=== PATIENT | male | born 1960 | race Caucasian/White ===

== ENCOUNTER 2017-11-26 13:07 | Inpatient (IN) | payer OTHER ==
[~2017-11-26] VITALS: Ht 182.9 cm; Wt 105.9 kg
[2017-11-26 13:23] VITALS: Ht 182.9 cm; Wt 105.9 kg
[2017-11-26 14:53] LABS: BASOPHIL % 0.7 % (0-2); PLATELET COUNT 201 x10^3mcL (130-400); RED CELL DISTRIBUTION WIDTH 13.9 % (11.5-14.5)
[2017-11-26 14:57] LABS: UA SPECIFIC GRAVITY 1.015 (1.005-1.035); microscopic required? YES; urine erythrocyte NEGATIVE (NEGATIVE)
[2017-11-26 15:02] LABS: CALCIUM 9.7 mg/dL (8.5-10.1); CARBON DIOXIDE 18.2 mmol/L (21-32); CHLORIDE SERUM 104 mmol/L (98-107); CREATININE SERUM 0.9 mg/dL (0.7-1.3); GFR1 > 60 mL/min; GLUCOSE SERUM 170 mg/dL (74-106); POTASSIUM SERUM 4.1 mmol/L (3.5-5.1); SODIUM SERUM 137 mmol/L (136-145)
[2017-11-26 15:14] LABS: ALBUMIN 3.6 g/dL (3.4-5.0); ALKALINE PHOSPHATASE 78 U/L (46-116); ALT/SGPT 62 U/L (16-63); AMYLASE 43 U/L (25-115); AST/SGOT 27 U/L (15-37); BILIRUBIN TOTAL 1.98 mg/dL (0.20-1.00); LIPASE 90 IU/L (73-393); TOTAL PROTEIN, SERUM 7.1 g/dL (6.4-8.2)
[2017-11-26 16:42] LABS: CHOLESTEROL/HDL RATIO 3.7; MAGNESIUM 2.3 mg/dL (1.8-2.4); PHOSPHOROUS 1.2 mg/dL (2.5-4.9)
[2017-11-26 16:45] LABS: T3 TOTAL 1.2 ng/mL
[2017-11-26 17:10] VITALS: BP 133/78
[2017-11-26 17:10] LABS: FREE T4 1.37 ng/dL (0.76-1.46); FREE THYROXINE INDEX 3.8 ug/dL (1.4-4.5); T4(THYROXINE) 11.1 ug/dL (4.7-13.3)
[2017-11-26 18:44] LABS: AMPHETAMINE QUAL UR NONE DETECTED (NEG <=1000)
[2017-11-26 19:20] VITALS: BP 141/93
[2017-11-27 05:58] VITALS: BP 140/90
[2017-11-27 06:43] LABS: BASOPHIL % 0 % (0-2); PLATELET COUNT 191 x10^3mcL (130-400)
[2017-11-27 06:49] LABS: CALCIUM 9.2 mg/dL (8.5-10.1); CARBON DIOXIDE 24.4 mmol/L (21-32); CHLORIDE SERUM 106 mmol/L (98-107); CREATININE SERUM 0.9 mg/dL (0.7-1.3); GFR1 > 60 mL/min; GLUCOSE SERUM 144 mg/dL (74-106); MAGNESIUM 2.3 mg/dL (1.8-2.4); PHOSPHOROUS 2.6 mg/dL (2.5-4.9); POTASSIUM SERUM 4.4 mmol/L (3.5-5.1); SODIUM SERUM 140 mmol/L (136-145)
[2017-11-27 09:50] VITALS: BP 140/84
[2017-11-27 12:16] VITALS: BP 135/88
[2017-11-27 17:17] VITALS: BP 144/93
[2017-11-27 19:45] VITALS: BP 115/74
[2017-11-27 20:58] VITALS: BP 127/84
[2017-11-28 05:38] VITALS: BP 139/90
[2017-11-28 06:14] LABS: BASOPHIL % 0.1 % (0-2); PLATELET COUNT 162 x10^3mcL (130-400); RED CELL DISTRIBUTION WIDTH 14.3 % (11.5-14.5)
[2017-11-28 07:04] LABS: CARBON DIOXIDE 25.8 mmol/L (21-32); CHLORIDE SERUM 109 mmol/L (98-107); CREATININE SERUM 0.9 mg/dL (0.7-1.3); GFR1 > 60 mL/min; GLUCOSE SERUM 103 mg/dL (74-106); POTASSIUM SERUM 4.9 mmol/L (3.5-5.1); SODIUM SERUM 140 mmol/L (136-145)
[2017-11-28 09:27] VITALS: BP 155/95
[2017-11-28 17:07] VITALS: BP 168/95
[2017-11-28 20:07] VITALS: BP 147/93
[2017-11-29 05:09] VITALS: BP 158/95
[2017-11-29 06:06] LABS: BASOPHIL % 0.4 % (0-2); PLATELET COUNT 171 x10^3mcL (130-400); RED CELL DISTRIBUTION WIDTH 14.1 % (11.5-14.5)
[2017-11-29 06:27] LABS: POTASSIUM SERUM 4.3 mmol/L (3.5-5.1); SODIUM SERUM 142 mmol/L (136-145)
[2017-11-29 07:01] LABS: BILIRUBIN DIRECT 0.39 mg/dL (0.0-0.2); BILIRUBIN TOTAL 1.3 mg/dL (0.20-1.00); CALCIUM 8.8 mg/dL (8.5-10.1); CARBON DIOXIDE 24.7 mmol/L (21-32); CHLORIDE SERUM 109 mmol/L (98-107); CREATININE SERUM 0.8 mg/dL (0.7-1.3); GFR1 > 60 mL/min; GLUCOSE SERUM 92 mg/dL (74-106)
[2017-11-29 08:54] VITALS: BP 148/94
[2017-11-29 17:44] VITALS: BP 160/103
[2017-11-29 18:25] VITALS: BP 167/96
[2017-11-29 20:12] VITALS: BP 132/82
[2017-11-30 05:05] VITALS: BP 158/99
[2017-11-30 05:48] VITALS: BP 158/98
[2017-11-30 06:14] LABS: BASOPHIL % 0.3 % (0-2); PLATELET COUNT 183 x10^3mcL (130-400); RED CELL DISTRIBUTION WIDTH 13.9 % (11.5-14.5)
[2017-11-30 06:40] LABS: CALCIUM 8.8 mg/dL (8.5-10.1); CARBON DIOXIDE 23.9 mmol/L (21-32); CHLORIDE SERUM 108 mmol/L (98-107); CREATININE SERUM 0.7 mg/dL (0.7-1.3); GFR1 > 60 mL/min; GLUCOSE SERUM 92 mg/dL (74-106); PHOSPHOROUS 2.6 mg/dL (2.5-4.9); POTASSIUM SERUM 4.1 mmol/L (3.5-5.1); SODIUM SERUM 139 mmol/L (136-145)
[2017-11-30 06:41] VITALS: BP 156/94
[2017-11-30 09:47] VITALS: BP 131/91
[2017-11-30] MEDS ORDERED: LEVAQUIN750 MG PO (11:20)
[2017-11-30] MEDS ORDERED: FLA500 PO (11:21)
[2017-11-30] MEDS ORDERED: GAS RELIEF80 MG PO (11:22)
[2017-11-30] MEDS ORDERED: LAC PO (11:22)
[2017-11-30] MEDS ORDERED: APAP/HYDROCODON1 T13 PO (13:54)
[2017-11-30 14:22] VITALS: BP 131/91
== END 2017-11-30 14:57 | disposition home or self-care (01) | DRG 391 ==
LOC: ED 13:07 → MU 15:38 → DU 15:38 → MU 11-27 18:46
PROVIDERS: Emergency Medicine; Family Medicine
DX: K52.9 Noninfective gastroenteritis and colitis, unspecified (principal); N17.0 Acute kidney failure with tubular necrosis; E86.0 Dehydration; K46.9 Unspecified abdominal hernia without obstruction or gangrene; E66.3 Overweight; K76.0 Fatty (change of) liver, not elsewhere classified; E78.5 Hyperlipidemia, unspecified; Z68.30 Body mass index [BMI] 30.0-30.9, adult
CPT/HCPCS: 83880; 84439; 87046; 87046-59; J1885; J1956; J2270; J2405; J3490; J7030; J8597; Q0092

== ENCOUNTER 2020-04-15 09:18 | Observation (INO) | payer OTHER ==
[~2020-04-15] VITALS: Ht 182.9 cm; Wt 101.6 kg
[~2020-04-15 09:18] MED LIST: APAP/HYDROCODON1 T13 PO; FLA500 PO; GAS RELIEF80 MG PO; LAC PO; LEVAQUIN750 MG PO
[2020-04-15 09:27] VITALS: Ht 182.9 cm; Wt 101.6 kg
--- NOTE | 2020-04-15 09:36 | NUR ---
PT WALKED TO ROOM IN STEADY GAIT.
--- NOTE | 2020-04-15 09:43 | NUR ---
URINE SAMPLE COLLECTED, URINE DIP DONE.
--- NOTE | 2020-04-15 10:38 | NUR ---
PT WAS TAKEN TO CT AFTER MEDICATION GIVEN.
[2020-04-15 11:07] LABS: BASOPHIL % 0.2 % (0-2); PLATELET COUNT 215 x10^3mcL (130-400); RED CELL DISTRIBUTION WIDTH 13.5 % (11.5-14.5)
[2020-04-15 11:08] LABS: UA SPECIFIC GRAVITY >=1.030 (1.005-1.035); microscopic required? YES; urine erythrocyte 3+ (NEGATIVE)
[2020-04-15 12:04] LABS: CARBON DIOXIDE 21.3 mmol/L (21-32); CHLORIDE SERUM 106 mmol/L (98-107); CREATININE SERUM 1.2 mg/dL (0.7-1.3); GFR1 > 60 mL/min; GLUCOSE SERUM 105 mg/dL (74-106); POTASSIUM SERUM 4.5 mmol/L (3.5-5.1); SODIUM SERUM 138 mmol/L (136-145)
[2020-04-15 12:14] LABS: ALBUMIN 3.8 g/dL (3.4-5.0); ALKALINE PHOSPHATASE 61 U/L (46-116); ALT/SGPT 78 U/L (16-63); AST/SGOT 37 U/L (15-37); LIPASE 115 IU/L (73-393); TOTAL PROTEIN, SERUM 6.6 g/dL (6.4-8.2)
--- NOTE | 2020-04-15 12:38 | NUR ---
PT STATED PAIN CAME BACK, DR. FREEDMAN AWARE. MORPHINE AND DAVID CABRAL ORDERED AND GIVEN IVP.
[2020-04-15] MEDS ORDERED: SIMVASTATIN5 M2 PO (12:40)
[2020-04-15] MEDS ORDERED: ELIQUIS5 MG PO (12:41)
[2020-04-15] MEDS ORDERED: FORTAMET500 M1 PO (12:42)
[2020-04-15] MEDS ORDERED: PEPCID AC20 M2 PO (12:43)
[2020-04-15] MEDS ORDERED: ZESTRIL20 MG PO (12:43)
--- NOTE | 2020-04-15 14:06 | NUR ---
[facility], ACCOMPANIED BY RN AND TRANSPORTER. PT A/A/O X 4, CALM, COOPERATIVE TO CARE; WEARS GLASSES (W/ PT). AMBULATORY, NO GAIT OR BALANCE IMPAIRMENT NOTED WHEN WALKING FROM GURNEY TO BED. ON TELE # 25, NSR, HR 75, DENIES CHEST PAIN OR DISCOMFORT AT THIS TIME. NO ACUTE RESPIRATORY DISTRESS NOTED. ABD SOFT, ROUND, NON-TENDER, NORMOACTIVE BOWEL SOUNDS X 4 QUADS, TYMPANY UPON PERCUSSION TO BUQ, LAST BM 04/14/2020. VOIDS FREELY, C/O BURNING ON URINATION AND CONSTANT SHARP PAIN TO L FLANK /10 THAT IS NOT EXACERBATED BY ANYTHING BUT RELIEVED MILDLY BY PAIN MEDICATION; UA SHOWS FEW BACTERIA AND RBC. IV SITE RH 20G, CDI. ORIENTED PT TO ROOM, BED CONTROLS, CALL LIGHT SYSTEM. SIDE RAILS UP X 2, BED IN LOW POSITION. UPON ADMISSION, NOTED THAT THERE IS AN ORDER FOR COVID-19/CHASTITY ORDERED AT 1330 WHICH WAS NOT ENDORSED FROM E/D; WILL ENDORSE TO MARGARITA BRODY.
--- NOTE | 2020-04-15 14:15 | NUR ---
RECIEVED REPORT FROM AUDREY AVILA: PATIENT IS A MALE ADMITTED TO THE ED FOR FLANK PAIN ON THE LEFT SIDE. HX OF DVT, GERD, KIDNEY STONES. NO HEMATURIA NOTED. IV 20G IN THE RIGHT HAND. GIVEN FENTANYL AND MORPHINE FOR PAIN IN E.R. CT SCAN WAS DONE OF THE ABDOMEN SHOWING A KIDNEY STONE. VS STABLE AT THIS TIME. ALERT AND ORIENTED X4. MRSA CULTURE DONE BY ANGE AVILA ASSISTING WITH ADMISSION.
[2020-04-15 14:54] VITALS: BP 139/83
[2020-04-15 17:20] VITALS: BP 120/79; BP 98/53
--- NOTE | 2020-04-15 19:30 | NUR ---
PT IS IN BED SITTING UP AT 90 DEGREES. A/O X4. WEARS GLASSES. ON TELEMONITOR 25. NSR. PULSES PALPABLE AND NO EDEMA NOTED. ON ROOM AIR. LUNG SOUNDS CTA. NORMOACTIVE BOWEL SOUNDS X4. LAST BM 04/14/20. FORMED AND BROWN. C/O LEFT FLANK PAIN. C/O LITTLE PAIN UPON URINATION. DENIES BLOOD NOTED IN URINE. AMBULATORY. NS RUNNING AT 100 MLS/HR. RH 20 G CDI. DENIES PAIN AT SITE. PATIENT CONCERNED ABOUT TAKING HIS HOME MEDS SCHEDULED AND CONCERNED ABOUT THE PAIN MEDS BEING EFFECTIVE FOR HIS PAIN THROUGHOUT THE NIGHT. WILL F/U. BED IN LOWEST AND LOCKED POSITION. CALL LIGHT WITHIN REACH. WILL CONT TO MONITOR.
[2020-04-15 20:17] VITALS: BP 127/76
--- NOTE | 2020-04-15 20:40 | NUR ---
PT C/O LEFT FLANK PAIN 02/15. GAVE MORPHINE PRESCRIBED FOR PAIN. BP WNL. WILL F/U WITH EFFECT OF MEDICATION.
--- NOTE | 2020-04-15 22:00 | NUR ---
PATIENT STATES PAIN DECREASED FOR ABOUT 2 HOURS AND THEN INCREASED AGAIN. GAVE NORCO PRESCRIBED PRN FOR PAIN. WILL F/U WITH EFFECT OF MEDICATION.
--- NOTE | 2020-04-15 22:27 | NUR ---
PT STATES HIS PAIN DECREASED FOR ABOUT TWO HOURS BUT HAS INCREASED AGAIN. WILL F/U WITH OTHER PAIN MEDS.
--- NOTE | 2020-04-16 01:10 | NUR ---
PATIENT STATES PAIN 8/10 LEFT FLANK PAIN. GAVE MORPHINE PRESCRIBED PRN FOR PAIN. WILL F/U WITH EFFECT OF MEDICATION.
--- NOTE | 2020-04-16 01:15 | NUR ---
PATIENT STATES HE HAS NOT BEEN ABLE TO SLEEP BECAUSE HE IS FREQUENTLY GETTING UP TO URINATE AT NIGHT. HE ALSO STATES THAT THE PAIN IS LIKE A "ROLLERCOASTER." THE PAIN LEVEL INCREASES AND DECREASES QUICKLY THROUGHOUT THE NIGHT.
--- NOTE | 2020-04-16 03:00 | NUR ---
PT IS RESTING IN BED WITH EYES CLOSED. BREATHING E/U. NO DISTRESS NOTED AT THIS TIME.
[2020-04-16 05:43] VITALS: BP 100/63
--- NOTE | 2020-04-16 06:15 | NUR ---
PAGED DR TINOCO REGARDING ORDERS FOR BLOOD SUGARS, SIMVASTATIN HOME MED, AND CHANGE IN PAIN MEDS. WILL AWAIT CALL.
[2020-04-16 06:37] LABS: BASOPHIL % 0.2 % (0-2); PLATELET COUNT 189 x10^3mcL (130-400); RED CELL DISTRIBUTION WIDTH 13.9 % (11.5-14.5)
--- NOTE | 2020-04-16 06:50 | NUR ---
AWAITING CALL FROM DR TINOCO REGARDING ORDERS.
[2020-04-16 06:58] LABS: CALCIUM 9.4 mg/dL (8.5-10.1); CHLORIDE SERUM 105 mmol/L (98-107); CREATININE SERUM 1.1 mg/dL (0.7-1.3); GFR1 > 60 mL/min; GLUCOSE SERUM 106 mg/dL (74-106); POTASSIUM SERUM 4.1 mmol/L (3.5-5.1); SODIUM SERUM 137 mmol/L (136-145)
--- NOTE | 2020-04-16 07:44 | NUR ---
INPUTED ORDERS STATED BY DR TINOCO. CONTINUED HOME MED SIMVASTATIN. ORDERED INSULIN SLIDING SCALE SET. DC'D MORPHINE AND ORDERED A HIGHER DOSE OF NORCO FOR SEVERE PAIN.
--- NOTE | 2020-04-16 07:45 | NUR ---
PATIENT IS STABLE AT THIS TIME. ENDORSED CARE TO AM NURSE.
[2020-04-16 08:24] VITALS: BP 112/76
[2020-04-16 11:53] VITALS: BP 107/70
[2020-04-16 15:35] VITALS: BP 103/63
--- NOTE | 2020-04-16 17:15 | NUR ---
UPDATE: TYLENOL GIVEN AGAIN FOR SORENESS ON BACK, PATIENT THINKS FROM PASSING KIDEY STONE LAST NIGHT. DOES NOT WANT NORCO AT THIS TIME CONTINUE TYLENOL. NORCO HE SAID WILL TAKE IT TONIGHT IF NEEDED. ACCUCHECKS ADDED LAST NIGHT FOR PREDIABETES TYPE 2. ALL ACCUCHECKS ARE WITHIN NORMAL LIMITS RANGING 108 & 90MG/DL TODAY.
--- NOTE | 2020-04-16 19:40 | NUR ---
Awake and verbally responsive. No respiratory distress noted on room air. Denies pain. Denies n/v. Will cont.to monitor. Call light within reach.
[2020-04-16 20:55] VITALS: BP 105/67
--- NOTE | 2020-04-17 | NUR ---
Resting at this time. In no apparent distress. Will cont.to monitor.
--- NOTE | 2020-04-17 04:35 | NUR ---
Afebrile. No significant change in condition noted. Denies pain. Denies dysuria or hematuria. Cont.on IV rocephin. In no apparent distress.
[2020-04-17 05:31] VITALS: BP 128/86
[2020-04-17 06:36] LABS: BASOPHIL % 0.4 % (0-2); PLATELET COUNT 195 x10^3mcL (130-400); RED CELL DISTRIBUTION WIDTH 13.7 % (11.5-14.5)
[2020-04-17 07:02] LABS: CALCIUM 9.7 mg/dL (8.5-10.1); CARBON DIOXIDE 28.3 mmol/L (21-32); CHLORIDE SERUM 107 mmol/L (98-107); GFR1 > 60 mL/min; GLUCOSE SERUM 97 mg/dL (74-106); POTASSIUM SERUM 4.5 mmol/L (3.5-5.1); SODIUM SERUM 140 mmol/L (136-145)
--- NOTE | 2020-04-17 07:14 | NUR ---
RECEIVED PT FROM DIRECTOR DATA PROCESSING NURSE. PT RESTING IN BED, AOX4, RESP E/U ON RA. DENIES ABD PAIN OR N/V AT THIS TIME. NO ACUTE DISTRESS NOTED. ON TELE 25 SHOWING SR, HR: 94. IV TO R HAND W/ NO SIGNS OF INFILTRATION, IVF INFUSING WELL. BED IN LOWEST POSITION AND CALL LIGHT WITHIN REACH. WILL CONTINUE TO MONITOR.
[2020-04-17 12:08] VITALS: BP 126/80
--- NOTE | 2020-04-17 13:08 | NUR ---
PT IN BED HAVING LUNCH, AOX4, RESP E/U ON RA. DENIES L FLANK PAIN OR N/V AT THIS TIME. NO ACUTE DISTRESS NOTED. BED IN LOWEST POSITION AND CALL LIGHT WITHIN REACH. WILL CONTINUE TO MONITOR.
--- NOTE | 2020-04-17 15:21 | NUR ---
PT DISCHARGED. REVIEWED D/C PACKET, NEW RX MEDS AND F/U INSTRUCTIONS W/ PT. PT VERBALIZED UNDERSTANDING OF INSTRUCTIONS. PT AOX4, RESP E/U ON RA, VS STABLE, DENIES PAIN OR N/V AT THIS TIME. IV TO RH REMOVED, CATH INTACT, GAUZE APPLIED TO SITE. TELE 25 COLLECTED AND RETURNED TO STUCCO APPLICATOR. PT AMBULATORY TO [facility]. ESCORTED BY BILLY REY W/ NO ACUTE INCIDENCE.
[2020-04-17] MEDS ORDERED: FLOMAX0.4 MG PO (16:05)
[2020-04-17 16:26] VITALS: BP 119/75
== END 2020-04-17 17:21 | disposition home or self-care (01) ==
LOC: ED 09:18 → DU 12:49
PROVIDERS: Emergency Medicine; ADMIT Internal Medicine; ATTEND Internal Medicine
DX: N20.0 Calculus of kidney (principal); I10 Essential (primary) hypertension; K21.9 Gastro-esophageal reflux disease without esophagitis; I82.409 Acute embolism and thrombosis of unspecified deep veins of unspecified lower extremity; Z20.828 Contact with and (suspected) exposure to other viral communicable diseases
CPT/HCPCS: 82962; G0378; J0696; J2270; J2405; J3010; J7030; Q0092